=== PATIENT | male | born 1960 | race Caucasian/White ===

== ENCOUNTER 2021-03-27 08:38 | Emergency (ER) | payer SELFPAY ==
[~2021-03-27] VITALS: Ht 182.8 cm; Wt 102.1 kg
[2021-03-27 09:11] LABS: BASO % 0.5 % (0.0-1.0); EOS # 0.4 10*3/uL (0.0-0.4); EOS % 5.2 % (1.0-4.0); HEMATOCRIT 49.7 % (42.0-52.0); LYMPH # 1.6 10*3/uL (1.3-4.4); LYMPH % 19.9 % (27.0-41.0); MEAN CELL VOLUME 91.7 fl (80.0-94.0); MEAN CORPUSCULAR HGB 30.4 pg (27.0-31.0); MEAN CORPUSCULAR HGB CONC 33.2 g/dl (33.0-37.0); MEAN PLATELET VOLUME 9.2 fl (9.6-12.3); MONO # 0.5 10*3/uL (0.1-1.0); MONO % 6.5 % (3.0-9.0); NEUT # 5.3 10*3/uL (2.3-7.9); NEUT % 67.6 % (47.0-73.0); PLATELET COUNT AUTOMATED 223 10*3/uL (130-400); RED BLOOD COUNT 5.42 10*6/uL (4.50-5.90); RED CELL DISTRI WIDTH 12.8 % (0-14.5); WHITE BLOOD COUNT 7.9 10*3/uL (4.8-10.8)
[2021-03-27] MEDS ORDERED: ZESTORETIC 20-1 EACH PO (09:23)
[2021-03-27] MEDS ORDERED: NORVASC10 MG PO (09:23)
[2021-03-27] MEDS ORDERED: METOPROLOL SUCC25 M2 PO (09:24)
[2021-03-27] MEDS ORDERED: SYNTHROID25 MCG PO (09:24)
[2021-03-27 09:25] LABS: ALBUMIN 3.7 gm/dl (3.1-4.5); ALKALINE PHOSPHATASE 103 U/L (45-117); BUN 13 mg/dl (7-24); CHLORIDE 107 mmol/L (98-107); CREATININE 1.08 mg/dL (0.70-1.30); POTASSIUM 3.7 mmol/L (3.5-5.1); SGOT/AST 21 IU/L (3-35); SGPT/ALT 37 U/L (12-78); SODIUM 139 mmol/L (136-145); TOTAL PROTEIN 8.5 gm/dL (6.4-8.2)
[2021-03-27 11:02] LABS: BILIRUBIN Negative (Negative); BLOOD 2+ (Negative); CLARITY Clear (Clear); COLOR Yellow (Yellow); GLUCOSE Negative (Negative); KETONE Negative (Negative); LEUKO ESTERASE Negative (Negative); NITRITE Negative (Negative); SPECIFIC GRAVITY 1.015 (1.001-1.030); UROBILINOGEN 0.2 E.U./dl (0.0-1.0)
[2021-03-27 11:13] LABS: CALCIUM OXALATE CRYSTALS 1+; RBC 51-100 rbc/hpf (0-2)
[2021-03-27] MEDS ORDERED: FLOMAX0.4 MG PO (12:02)
== END 2021-03-27 12:18 | disposition home or self-care (01) ==
LOC: ED 08:38
PROVIDERS: Internal Medicine
DX: N40.0 Benign prostatic hyperplasia without lower urinary tract symptoms (principal); R33.9 Retention of urine, unspecified; F17.200 Nicotine dependence, unspecified, uncomplicated; Z79.899 Other long term (current) drug therapy

== ENCOUNTER 2021-08-16 08:40 | Emergency (ER) | payer OTHER ==
[~2021-08-16] VITALS: Wt 97.5 kg
[~2021-08-16 08:40] MED LIST: FLOMAX0.4 MG PO; METOPROLOL SUCC25 M2 PO; NORVASC10 MG PO; SYNTHROID25 MCG PO; ZESTORETIC 20-1 EACH PO
[2021-08-16 09:14] LABS: BILIRUBIN Negative (Negative); BLOOD Negative (Negative); CLARITY Clear (Clear); COLOR Yellow (Yellow); GLUCOSE Negative (Negative); KETONE Negative (Negative); LEUKO ESTERASE Negative (Negative); NITRITE Negative (Negative); PH 6.5 (4.5-8.0); SPECIFIC GRAVITY 1.015 (1.001-1.030)
[2021-08-16] MEDS ORDERED: ATORVASTATIN CA40 M1 PO (09:19)
[2021-08-16] MEDS ORDERED: DOXAZOSIN MESYLA1 MG PO (09:19)
[2021-08-16 09:22] LABS: MUCOUS TRACE; WBC 0-2 wbc/hpf (0-5)
[2021-08-16] MEDS ORDERED: LEVOFLOXACIN500 MG PO (09:32)
[2021-08-16] MEDS ORDERED: FLOMAX0.4 MG PO (09:32)
== END 2021-08-16 09:53 | disposition home or self-care (01) ==
LOC: ED 08:40
PROVIDERS: Emergency Medicine
DX: R33.9 Retention of urine, unspecified (principal); N40.1 Benign prostatic hyperplasia with lower urinary tract symptoms; Z79.899 Other long term (current) drug therapy; F17.200 Nicotine dependence, unspecified, uncomplicated